=== PATIENT | male | born 1940 | race Caucasian/White ===

== ENCOUNTER 2025-06-17 15:13 | Emergency (ER) | payer OTHER, SELFPAY ==
[2025-06-17 15:14] VITALS: BP 121/69
--- NOTE | 2025-06-17 15:43 | ED.GENMED ---
History of Present Illness
General
Chief Complaint: Abdominal Symptoms
Time Seen by Provider: 06/17/25 15:43
History of Present Illness
History of Present Illness:
FOCUSED PAST MEDICAL HISTORY
- Has history of dementia
REVIEW OF OLD RECORDS
- No old records available for review in [facility]. The patient arrives with a POLST that I reviewed which indicates 'comfort measures only'. I also reviewed the run sheet from [facility] which indicates the patient is coming in from [place]
[facility]s, blood pressures for EMS was around 100/60 and heart rate has been around 60. His med list includes Flomax, Toprol 25 mg daily, amiodarone 100 mg daily, atorvastatin, metformin 500 mg twice daily, and trazodone 25 mg nightly
Note:
CHIEF COMPLAINT(S)
Vomiting and weakness leading to a fall.
HISTORY OF PRESENT ILLNESS
The patient is an 85-year-old male with a known history of dementia. He presented to the emergency room following an episode of vomiting. According to the initial report from the nurse who spoke with EMS, the patient was so weak after vomiting that
he fell to the ground. However, there were no injuries as he was assisted to the ground. Upon examination, the patient was unable to recall the current but recognized June when prompted. He denied any ongoing nausea, diarrhea, headache,
chest pain, or current pain. At the time of evaluation, the patient reported feeling relaxed without any discomfort.
At 3:50 PM, I spoke to the daughter, Niesha, over the phone who indicates that the patient, last week, had a 'funny cough', reportedly had neg CXR. Several falls past few days. Struck head.
ADDITIONAL HISTORY OBTAINED FROM SOURCES OTHER THAN THE PATIENT
Per EMS, the patient experienced an episode of vomiting and subsequent weakness to the extent of nearly falling. There were no injuries as he was assisted to the ground.
CHRONIC MEDICAL CONDITIONS SIGNIFICANTLY AFFECTING CARE
Dementia
PHYSICAL EXAM
-General: Appears in no distress, he appears comfortable but rather weak and debilitated
-HEENT: Somewhat dry oral mucosa
-Cardiovascular: Regular rate and rhythm
-Pulmonary: No respiratory distress, breathing is nonlabored, equal and clear breath sounds
-Abdomen: Soft and nontender with no peritoneal signs
-Neurologic: The patient has evidence of dementia, not oriented to month or place, strength is equal in all extremities
-Extremities: Moves all extremities equally, no tenderness, no edema
-Psychiatric: Very limited historian, limited insight and judgment
PLAN
Blood work will be performed and intravenous fluids administered to manage the patients episode of vomiting and subsequent weakness. Communication will be established with the patients daughter for further discussion regarding the patients condition
and care plan.
DIFFERENTIAL DIAGNOSIS
The Differential Diagnosis includes, in no particular order and is not limited to:
1. Dehydration
2. Electrolyte imbalance
3. Gastroenteritis
4. Medication side effect
5. Neurological event
6. Sepsis
7. Acute kidney injury
8. Cardiac event
9. Hypoglycemia
10. Adverse reaction to substances
RADIOLOGY
- CT head obtained which was unremarkable
LABS
- White count normal, hemoglobin 10.0 with no old to compare, sodium 133, BUN 37, creatinine 0.9
UPDATE
- The patient was given IV fluids. I spoke to daughter over the phone.
SUMMARY OF ENCOUNTER
An 85-year-old male presented to the emergency department with vomiting and subsequent weakness, leading to a fall. Upon evaluation, he reported no ongoing nausea, pain, or discomfort. Initial blood work showed normal creatinine but elevated blood
urea nitrogen (BUN), suggesting dehydration. The patient received intravenous fluids to address potential dehydration. A CT scan was performed due to a reported fall and possible head strike, which was independently reviewed and appeared normal.
COVID-19 and flu tests were conducted, and results were negative.
DISPOSITION
Discharge
ASSESSMENT
The patient presented with symptoms consistent with dehydration. Elevated BUN and normal creatinine levels confirmed this. Given the correction with IV fluids and stable condition, continued hospitalization was not deemed necessary.
EMERGENCY TREATMENTS ADMINISTERED
Intravenous fluids
MANAGEMENT OF THE PATIENTS CARE WAS DISCUSSED WITH
The patients care and condition were discussed with the patient�s family, primarily his daughter and son.
PLAN
Discharge the patient with arrangements for an ambulance transfer back to his residence at [facility]. Suggest monitoring hydration status and consider further evaluation for viral syndromes if symptoms persist or worsen.
INDEPENDENT REVIEW OF LABS AND INTERPRETATION OF TESTS
My independent review of basic metabolic panel indicates the creatinine level is normal, while the blood urea nitrogen is elevated, pointing towards dehydration.
My independent interpretation of the CT scan of the brain revealed no signs of bleeding or acute injury.
PATIENT EDUCATION AND COUNSELING
The patients family has been informed about the possible dehydration and the findings on the CT scan. They were educated on monitoring the patients fluid intake and seeking follow-up if symptoms persist.
FOLLOW-UP INSTRUCTIONS
Please call a healthcare provider if the symptoms persist or new symptoms arise.
MEDICATION RECONCILIATION
No prescriptions or additional medications were administered beyond IV fluids during this visit.
MEDICAL DECISION MAKING
-Complexity of Data Reviewed: Chronic conditions affecting care include dementia. The differential diagnosis list includes dehydration, electrolyte imbalance, gastroenteritis, medication side effect, neurological event, sepsis, acute kidney injury,
cardiac event, hypoglycemia, and adverse reaction to substances.
-Data:
Category 1
The patients blood work and CT scan were reviewed and independently interpreted. COVID-19 and flu tests were conducted and returned negative.
Clinical information was obtained from an independent historian (EMS and the patients daughter).
Category 3
Discussion of management was carried out with the patients family members, including the son and daughter, and further consultation with the patients sister via phone.
-Risk:
Consideration of Admission/Observation: Escalation of care including admission/observation was considered given the complexity and risk of the patients presenting complaint, exam findings, and underlying comorbidities. However, ultimately I feel the
patient is safe for outpatient management with close follow-up. Reasoning: Work-up is reassuring, does not reveal any acute life/organ threatening processes, patients symptoms well controlled upon reevaluation, reexamination is reassuring, vitals
are stable, patient agreeable with discharge, reliable for follow-up.
DIAGNOSIS
Dehydration - ICD-10 E86.0
Phy Exam
Physical Exam
Physical Exam:
See HPI
Course
Orders/Labs/Results
Orders:
Orders
06/17/25 15:51
0.9% Sodium Chloride 500 ml [Nss] 500 ml IV BOLUS
06/17/25 15:55
CT Head W/o Iv Contrast Urgent
Comment:
Reason For Exam: frequent falls; head injury
06/17/25 16:08
Complete Blood Count/With Diff Urgent
Comprehensive Metabolic Panel Urgent
Lipase Urgent
06/17/25 18:02
COVID-19 Antigen Urgent
Source: Nasal Swab
Influenza A+B Rapid Molecular Urgent
LISA Source: Nasal Swab
Specimen Description:
Abnormal Lab Results
06/17/25
16:08
RBC 3.40 L 10^6/uL
(4.70-6.10)
Hgb 10.0 L g/dL
(13.0-18.0)
Hct 29.7 L %
(39.0-52.0)
MPV 10.6 H fL
(7.4-10.4)
Abs Immat Gran (auto) 0.1 H 10^3/uL
(0-0.05)
Absolute Neuts (auto) 8.3 H 10^3/uL
(1.4-6.5)
Absolute Lymphs (auto) 0.7 L 10^3/uL
(1.2-3.4)
Absolute Monos (auto) 0.7 H 10^3/uL
(0.1-0.6)
Immature Gran % 0.9 H %
(0-0.5)
Neutrophils % 84.5 H %
(42.2-75.2)
Lymphocytes % 7.1 L %
(20.5-51.1)
Sodium 133 L mmol/L
(135-145)
Chloride 97 L mmol/L
(98-107)
BUN 37 H mg/dl
(9-20)
Glucose 182 H mg/dl
(70-99)
06/17/25 16:08
06/17/25 16:08
Vital Signs
Initial and Last Documented VS:
Initial Vital Signs
Temp Pulse Resp BP Pulse Ox
36.6 C 59 16 121/69 95
06/17/25 15:14 06/17/25 15:14 06/17/25 15:14 06/17/25 15:14 06/17/25 15:14
Last Documented Vital Signs
Temp Pulse Resp BP Pulse Ox
36.6 C 65 16 123/64 98
06/17/25 15:14 06/17/25 19:07 06/17/25 15:14 06/17/25 19:07 06/17/25 19:07
*Pulse Oximetry
SaO2: 95
Oxygen Mode of Delivery: Room air
Patient hypoxic: no
*Critical Care Note
Total Time (30-74mins, 75-104mins- exclusive of procedures): Not Applicable
ED Attending Note
-
Portions of this chart may have been created with voice recognition software.� Occasional wrong word or��sound alike� substitutions may have occurred due to the inherent limitations of voice recognition software.
Discharge Plan
Departure
Patient Disposition: Home (Routine Discharge)
Date of Disposition: 06/17/25
Time of Disposition: 19:29
Patient with high blood pressure during this ER visit?: Yes
Discharge Problem:
Weakness
Instructions: Weakness
Referrals:
Jong Murphy DO [Family Provider, Internal Medicine]
Activity Restrictions/Additional Instructions:
White count is normal at 9.8, hemoglobin is low at 10.0 with no old to compare, BUN is 37 which is high and creatinine is normal at 0.9. We did give IV fluids. Glucose is 182. Lipase and LFT levels are normal. COVID and flu test are both
negative. CAT scan of the brain shows no acute abnormality
Interventions
Interventions:
*Risk Screen - Suicide Last Done: 06/17/25 15:17
*General Assessment Last Done: 06/17/25 15:17
*Neglect/Abuse Screening Last Done: 06/17/25 15:17
*ED COVID-19 Vaccine History Last Done: 06/17/25 15:17
DU-Rmrmot-Ndkpzykyvz Assessment Last Done: 06/17/25 17:29
Discharge Date and Time
Print Language: FINNISH
[2025-06-17] MEDS: NSS 500 IV (16:10)
[2025-06-17 16:17] LABS: Hematocrit 29.7 % (39.0-52.0); Hemoglobin 10.0 g/dL (13.0-18.0); Mean Corp Hgb Conc. 33.7 g/dL (33.0-37.0); Mean Corpuscular Volume 87.4 fL (80.0-94.0); Nucleated Red Blood Cells % 0 % (-); Platelet Count 248 10^3/uL (130-400); Red Cell Dist. Width 13.3 % (11.5-14.5)
[2025-06-17 16:40] LABS: ALT (SGPT) 17 U/L (0-50); AST (SGOT) 23 U/L (17-59); Albumin 3.9 g/dl (3.5-5.0); Alkaline Phosphatase 83 U/L (38-126); Blood Urea Nitrogen 37 mg/dl (9-20); Calcium 8.6 mg/dl (8.4-10.2); Carbon Dioxide 29 mmol/L (22-30); Chloride 97 mmol/L (98-107); Glucose 182 mg/dl (70-99); Lipase 57 U/L (23-300); Potassium 4.5 mmol/L (3.5-5.1); Sodium 133 mmol/L (135-145); Total Protein 7.1 g/dl (6.3-8.2); eGFR > 60.00
[2025-06-17 18:42] LABS: COVID-19 Antigen Negative (Negative)
[2025-06-17 19:07] VITALS: BP 123/64
== END 2025-06-18 00:17 | disposition home or self-care (01) ==
LOC: EMR 15:13
PROVIDERS: EMERGENCY PHYSICIAN Emergency Medicine; FAMILY PHYSICIAN Internal Medicine Geriatric Medicine
DX: E86.0 Dehydration (principal); R29.6 Repeated falls; F03.90 Unspecified dementia, unspecified severity, without behavioral disturbance, psychotic disturbance, mood disturbance, and anxiety; Z79.84 Long term (current) use of oral hypoglycemic drugs
CPT/HCPCS: 99284; 70450; 80053; 83690; 85025; 87502; 87811